=== PATIENT | female | born 1980 | race African-American/Black ===

== ENCOUNTER 2020-02-08 09:19 | Inpatient (IN) | payer MEDICAID, OTHER ==
[~2020-02-08] VITALS: Ht 165.1 cm; Wt 68.2 kg
[2020-02-08 10:25] LABS: AMPHET/METH SCREEN,URINE NEGATIVE (NEGATIVE); BARBITURATE SCREEN, URINE NEGATIVE (NEGATIVE); BENZODIAZEPINES SCREEN,URINE NEGATIVE (NEGATIVE); CANNABINOID SCREEN,URINE NEGATIVE (NEGATIVE); COCAINE SCREEN,URINE NEGATIVE (NEGATIVE); METHADONE SCREEN, URINE NEGATIVE (NEGATIVE); OPIATE SCREEN,URINE NEGATIVE (NEGATIVE)
[2020-02-08 10:26] LABS: PHENCYCLIDINE SCREEN,URINE NEGATIVE (NEGATIVE)
[2020-02-08 11:53] LABS: COVID AG,FIA SOURCE NASOPHARYNGEAL
[2020-02-08] MEDS ORDERED: ZOLPIDEM TARTRATE 10 MG TABLET PO PRN (12:45)
[2020-02-08] MEDS ORDERED: LORazepam 2 MG TABLET PO PRN (12:45)
[2020-02-08] MEDS ORDERED: HALOPERIDOL 5 MG TABLET PO PRN (12:45)
[2020-02-08] MEDS ORDERED: ALBUTEROL SULFATE HFA 90 MCG/PUFF 8 GM INHALER IH PRN (16:30)
[2020-02-08] MEDS ORDERED: PETROLATUM,WHITE 28 GM JELLY TP PRN (16:30)
[2020-02-08] MEDS ORDERED: MAGNESIUM HYDROXIDE SUSPENSION 30 ML UDCUP PO PRN (16:30)
[2020-02-08] MEDS ORDERED: NICOTINE 14 MG/24 HOUR PATCH TD PRN (16:30)
[2020-02-08] MEDS ORDERED: DOCUSATE SODIUM 100 MG CAPSULE PO PRN (16:30)
[2020-02-08] MEDS ORDERED: ACETAMINOPHEN 325 MG TABLET PO PRN (16:30)
[2020-02-08] MEDS ORDERED: LOPERAMIDE HCL 2 MG CAPSULE PO PRN (16:30)
[2020-02-08] MEDS ORDERED: ONDANSETRON HCL 4 MG TABLET PO PRN (16:30)
[2020-02-08] MEDS ORDERED: GuaiFENesin/D-METHORPHAN [SUGAR-FREE] 200-20MG/10 ML SYRUP UDCUP PO PRN (16:30)
[2020-02-08] MEDS ORDERED: MAG HYDROX/AL HYDROX/SIMETH ES 30 ML SUSPENSION UDCUP PO PRN (16:30)
[2020-02-08] MEDS ORDERED: CloNIDine HCL 0.1 MG TABLET PO PRN (16:30)
[2020-02-08] MEDS ORDERED: IBUPROFEN 400 MG TABLET PO PRN (16:30)
[2020-02-08 20:16] VITALS: BP 111/71
[2020-02-09 06:05] VITALS: BP 100/60
[2020-02-09] MEDS ORDERED: INFLUENZA VIRUS VACCINE QVS 2020-21 (6MO+)/PF 60 MCG/0.5 ML SYRINGE IM ONE (07:15)
[2020-02-09 08:13] VITALS: BP 104/67
[2020-02-09 16:18] VITALS: BP 102/61
[2020-02-09] MEDS: ARIPiprazole 10 MG TABLET PO SCH (19:00)
[2020-02-10 05:35] VITALS: BP 100/72
[2020-02-10] MEDS: ARIPiprazole 10 MG TABLET PO SCH (08:16)
[2020-02-10 09:42] VITALS: BP 118/76
[2020-02-10 16:38] VITALS: BP 100/64
[2020-02-11 01:06] VITALS: BP 99/63
[2020-02-11 08:06] VITALS: BP 116/70
[2020-02-11] MEDS: ARIPiprazole 10 MG TABLET PO SCH (09:00)
[2020-02-11] MEDS ORDERED: ARIP10TA8 PO (10:21)
== END 2020-02-11 13:21 | disposition home or self-care (01) | DRG 750 ==
LOC: EMS 09:25 → B2S 13:00
DX: F20.9 Schizophrenia, unspecified (principal); F19.10 Other psychoactive substance abuse, uncomplicated; Z20.828 Contact with and (suspected) exposure to other viral communicable diseases
CPT/HCPCS: 87426